=== PATIENT | male | born 1975 | race Caucasian/White ===

== ENCOUNTER 2016-11-09 06:40 | Emergency (ER) | payer BC ==
[~2016-11-09] VITALS: Ht 188 cm; Wt 106.6 kg
[2016-11-09 06:43] VITALS: BP_SYST 140
[2016-11-09] MEDS ORDERED: NACL 0.9% 1,000 ML IV ONE (07:19)
[2016-11-09] MEDS ORDERED: KETOROLAC TROMETHAMINE 30 MG VIAL IVP ONE (07:30)
[2016-11-09] MEDS ORDERED: ONDANSETRON HCL 4 MG/2 ML VIAL IVP ONE (07:30)
[2016-11-09 07:36] LABS: BASOPHILS # (AUTO) 0.1 K/uL (0.0-0.2); BASOPHILS % (AUTO) 1.1 % (0.0-2.0); EOSINOPHILS # (AUTO) 0.1 K/uL (0.0-0.4); EOSINOPHILS % (AUTO) 0.7 % (0.0-4.0); HEMATOCRIT 48.8 % (36-54); HEMOGLOBIN 16.1 g/dL (14.0-18.0); MEAN CORPUSCULAR HEMOGLOBIN 29 pg (27-31); MEAN CORPUSCULAR HGB CONC 33 % (32-36); MEAN CORPUSCULAR VOLUME 89 fL (79.0-98.0); MONOCYTES # (AUTO) 0.5 K/uL (0.0-1.0); MONOCYTES % (AUTO) 6.7 % (1.7-9.3); NEUTROPHILS # (AUTO) 5.9 K/uL (1.8-7.7); NEUTROPHILS % (AUTO) 78.5 % (40.0-70.0); PLATELET COUNT (AUTO) 210 K/uL (130-430); RED BLOOD CELL COUNT(AUTO) 5.47 MIL/uL (4.2-6.2); RED CELL DISTRIBUTION WIDTH 12.8 % (9.0-15.0); WHITE BLOOD COUNT (AUTO) 7.6 K/uL (4.8-10.8)
[2016-11-09 07:48] LABS: CALCIUM 9.3 mg/dL (8.4-11.0); CREATININE 1.17 mg/dL (0.55-1.30); POTASSIUM 4.1 mmol/L (3.5-5.1)
[2016-11-09 07:53] LABS: ALBUMIN 3.8 g/dL (3.4-4.8); TOTAL BILIRUBIN 0.5 mg/dL (0.0-1.0)
[2016-11-09 08:38] LABS: ERYTHROCYTE SEDIMENTATION RATE 1 MM/HR (0-15)
[2016-11-09 09:40] VITALS: BP_SYST 132
== END 2016-11-09 09:40 | disposition home or self-care (01) ==
LOC: SED 06:40
DX: J32.9 Chronic sinusitis, unspecified (principal)
CPT/HCPCS: 36415; 70450; 80053; 85025; 85651; 96361; 96374; 96375; 99285; J1885; J2405; J7030

== ENCOUNTER 2023-10-08 21:41 | Inpatient (IN) | payer BC ==
[~2023-10-08] VITALS: Ht 188 cm; Wt 117.9 kg
[2023-10-08] MEDS: ACETAMINOPHEN 500 MG TABLET PO ONE (22:53)
[2023-10-08] MEDS: NS 1000 ML IV.SOLN IV ONE (23:18)
[2023-10-08 23:21] LABS: HEMATOCRIT 38.6 % (36-54); HEMOGLOBIN 13.4 g/dL (14.0-18.0); MEAN CORPUSCULAR HEMOGLOBIN 33 pg (27-31); MEAN CORPUSCULAR HGB CONC 35 % (32-36); MEAN CORPUSCULAR VOLUME 96 fL (79.0-98.0); PLATELET COUNT (AUTO) 144 K/uL (130-430); RED BLOOD CELL COUNT(AUTO) 4.01 MIL/uL (4.2-6.2); RED CELL DISTRIBUTION WIDTH 16.3 % (9.0-15.0); WHITE BLOOD COUNT (AUTO) 3.4 K/uL (4.8-10.8)
[2023-10-08 23:46] LABS: ALANINE AMINOTRANSFERASE 29 U/L (12-78); ALBUMIN 3.3 g/dL (3.4-4.8); ANION GAP 8 (5-15); ASPARTATE AMINOTRANSFERASE 20 U/L (10-37); BILIRUBIN,DIRECT 0.2 mg/dL (0.0-0.3); CALCIUM 8.7 mg/dL (8.4-11.0); CARBON DIOXIDE 29 mmol/L (23-29); CHLORIDE 97 mmol/L (98-107); CREATININE 1.21 mg/dL (0.55-1.30); GFR AFRICAN AMERICAN 82 mL/min (>90); GLUCOSE 129 mg/dL (74-106); POTASSIUM 4.3 mmol/L (3.5-5.1); SODIUM SERUM 134 mmol/L (136-145); TOTAL BILIRUBIN 0.6 mg/dL (0.0-1.0); TOTAL PROTEIN, SERUM 7.4 g/dL (6.4-8.3); UREA NITROGEN, BLOOD 13 mg/dL (8-21)
[2023-10-08 23:47] LABS: INR 1.1 (0.80-1.20); PROTHROMBIN TIME 11.5 SECS (9.5-12.5)
[2023-10-08 23:50] LABS: GFR NON AFRICAN-AMERICAN 68 mL/min (>90)
[2023-10-09] MEDS ORDERED: DIF100 PO (00:30)
[2023-10-09] MEDS ORDERED: VALA500T PO (00:30)
[2023-10-09] MEDS ORDERED: CIPR250T4 PO (00:30)
[2023-10-09 00:34] LABS: BILIRUBIN,URINE NEGATIVE (NEGATIVE); BLOOD, URINE NEGATIVE (NEGATIVE); CLARITY/URINE CLEAR (CLEAR); COLOR,URINE YELLOW (YELLOW); GLUCOSE,URINE NEGATIVE (NEGATIVE); KETONES,URINE NEGATIVE (NEGATIVE); LEUKOCYTE ESTERASE ,URINE NEGATIVE (NEGATIVE); NITRITE, URINE NEGATIVE (NEGATIVE); PROTEIN URINE NEGATIVE (NEGATIVE); UROBILINOGEN,URINE 0.2 (0.2-1.0)
[2023-10-09 00:58] LABS: COVID19 ANTIGEN SOFIA FIA NEGATIVE (NEGATIVE)
[2023-10-09] MEDS ORDERED: VANCOMYCIN HCL 1000 MG/VIAL IV ONE (01:01)
[2023-10-09] MEDS ORDERED: CEFEPIME 2 GM/VIAL (MAXIPIME) ONE ×2 (01:01→01:03)
[2023-10-09 01:09] LABS: LYMPHOCYTES % (MANUAL) 30 % (20-46)
[2023-10-09 01:10] LABS: ATYPICAL LYMPHOCYTES % 44 % (0-0); EOSINOPHILS % (MANUAL) 1 % (0-7); MONOCYTES % (MANUAL) 2 % (0-11)
[2023-10-09 01:11] LABS: PLATELET ESTIMATE ADEQUATE (ADEQUATE)
[2023-10-09] MEDS: CEFEPIME 2 GM in D5W 100 ML IV ONE (01:15)
[2023-10-09 01:21] LABS: INFLUENZA TYPE A Negative (NEGATIVE); INFLUENZA TYPE B NEGATIVE (NEGATIVE)
[2023-10-09] MEDS: VANCOMYCIN HCL 1,000 MG in NS 250 ML IV ONE (02:30)
[2023-10-09 04:37] VITALS: BP_SYST 127; PULSE 78; RESP 16; TEMP 98.6; O2SAT 98
[2023-10-09] MEDS: ACETAMINOPHEN 325 MG TABLET PO PRN (05:26)
[2023-10-09] MEDS: DIPHENHYDRAMINE HCL 25 MG CAPSULE PO ONE (05:26)
[2023-10-09 08:58] VITALS: BP_SYST 140; PULSE 90; RESP 18; TEMP 98.6; O2SAT 99
[2023-10-09 09:25] VITALS: O2SAT 99
[2023-10-09] MEDS ORDERED: HYDROcodone/ACETAMIN 5-325 MG TAB (NORCO/ VICODIN) PO PRN (11:00)
[2023-10-09] MEDS ORDERED: HYDROcodone/ACETAMIN 10-325 MG TAB PO PRN (11:00)
[2023-10-09] MEDS ORDERED: LORazepam 2 MG/ML VIAL IVP PRN (11:00)
[2023-10-09] MEDS ORDERED: NALOXONE HCL 0.4 MG/ML AMP (NARCAN) IVP PRN ×2 (11:00)
[2023-10-09] MEDS ORDERED: ONDANSETRON HCL 4 MG/2 ML VIAL IVP PRN (11:00)
[2023-10-09] MEDS: predniSONE 20 MG TABLET PO ONE (11:25)
[2023-10-09 11:51] LABS: BASOPHILS % (AUTO) 0.3 % (0.0-2.0); EOSINOPHILS % (AUTO) 0.6 % (0.0-4.0); HEMATOCRIT 38.5 % (36-54); LYMPHOCYTES % (AUTO) 74.5 % (20.5-51.5); MEAN CORPUSCULAR HEMOGLOBIN 33 pg (27-31); MEAN CORPUSCULAR HGB CONC 34 % (32-36); MEAN CORPUSCULAR VOLUME 98 fL (79.0-98.0); MONOCYTES # (AUTO) 0.1 K/uL (0.0-1.0); MONOCYTES % (AUTO) 3.5 % (1.7-9.3); NEUTROPHILS % (AUTO) 21.1 % (40.0-70.0); PLATELET COUNT (AUTO) 135 K/uL (130-430); RED BLOOD CELL COUNT(AUTO) 3.93 MIL/uL (4.2-6.2); RED CELL DISTRIBUTION WIDTH 16.2 % (9.0-15.0)
[2023-10-09 12:05] LABS: NEUTROPHILS # (AUTO) 0.6 K/uL (1.8-7.7)
[2023-10-09 12:06] VITALS: BP_SYST 121; PULSE 90; RESP 17; TEMP 100.3; O2SAT 96
[2023-10-09 12:10] LABS: CALCIUM 8.5 mg/dL (8.4-11.0); CREATININE 1.17 mg/dL (0.55-1.30); TOTAL BILIRUBIN 0.6 mg/dL (0.0-1.0); TOTAL PROTEIN, SERUM 6.8 g/dL (6.4-8.3)
[2023-10-09] MEDS: DIPHENHYDRAMINE HCL 25 MG CAPSULE PO SCH (13:04)
[2023-10-09] MEDS: CEFEPIME 2 GM in D5W 100 ML IV SCH (13:05)
[2023-10-09] MEDS: NORMAL SALINE 5 ML DISP.SYRIN IVF SCH (13:06)
[2023-10-09 14:33] LABS: WHITE BLOOD COUNT (AUTO) 2.7 K/uL (4.8-10.8)
[2023-10-09] MEDS: cefTRIAXone 1 GM IVPB PREMIX 50 ML IV SCH (14:44)
[2023-10-09 16:32] VITALS: BP_SYST 124; PULSE 91; RESP 18; TEMP 100; O2SAT 95
[2023-10-09] MEDS ORDERED: FILGRASTIM Non-Formulary 0.48 MG/VIAL SUBCUT SCH (17:00)
[2023-10-09] MEDS: TBO-FILGRASTIM 480 MCG/0.8 ML SYRINGE SUBCUT ONE (19:41)
[2023-10-09 20:00] VITALS: BP_SYST 129; PULSE 88; RESP 18; TEMP 99.3; O2SAT 95
[2023-10-09] MEDS ORDERED: IBUPROFEN 400 MG TABLET PO PRN (20:45)
[2023-10-09] MEDS: D5/0.45 NS 1,000 ML IV SCH (21:08)
[2023-10-10] VITALS: BP_SYST 129; PULSE 87; RESP 18; TEMP 100.4; O2SAT 95
[2023-10-10] MEDS ORDERED: OXYMETAZOLINE HCL 0.05% NASAL SPRAY NS PRN (04:45)
[2023-10-10] MEDS: ACETAMINOPHEN 325 MG TABLET PO PRN (05:49)
[2023-10-10 07:50] LABS: CALCIUM 8.4 mg/dL (8.4-11.0); CREATININE 1.16 mg/dL (0.55-1.30); POTASSIUM 4.1 mmol/L (3.5-5.1)
[2023-10-10 08:00] VITALS: O2SAT 95
[2023-10-10 08:03] LABS: BASOPHILS % (AUTO) 0.3 % (0.0-2.0); EOSINOPHILS % (AUTO) 0.9 % (0.0-4.0); HEMATOCRIT 36.8 % (36-54); HEMOGLOBIN 12.4 g/dL (14.0-18.0); LYMPHOCYTES # (AUTO) 1.3 K/uL (1.0-5.5); LYMPHOCYTES % (AUTO) 62.9 % (20.5-51.5); MEAN CORPUSCULAR HEMOGLOBIN 33 pg (27-31); MEAN CORPUSCULAR HGB CONC 34 % (32-36); MEAN CORPUSCULAR VOLUME 98 fL (79.0-98.0); MONOCYTES % (AUTO) 0.6 % (1.7-9.3); PLATELET COUNT (AUTO) 140 K/uL (130-430); RED BLOOD CELL COUNT(AUTO) 3.76 MIL/uL (4.2-6.2); RED CELL DISTRIBUTION WIDTH 15.9 % (9.0-15.0); WHITE BLOOD COUNT (AUTO) 2.1 K/uL (4.8-10.8)
[2023-10-10] MEDS ORDERED: FLUCONAZOLE 100 MG TABLET (DIFLUCAN) PO SCH (09:00)
[2023-10-10] MEDS ORDERED: predniSONE 20 MG TABLET PO SCH (09:00)
[2023-10-10] MEDS ORDERED: valACYclovir HCL 500 MG TABLET PO SCH (09:00)
[2023-10-10 09:06] LABS: NEUTROPHILS # (AUTO) 0.7 K/uL (1.8-7.7)
[2023-10-10 09:08] LABS: NEUTROPHILS % (AUTO) 35.3 % (40.0-70.0)
[2023-10-10 09:29] VITALS: BP_SYST 132; PULSE 87; RESP 12; TEMP 100.1; O2SAT 95
[2023-10-10] MEDS ORDERED: methylPREDNISolone SOD SUCC/PF 62.5 MG/ML VIAL IVP ONE (09:55)
[2023-10-10] MEDS ORDERED: TBO-FILGRASTIM 480 MCG/0.8 ML SYRINGE SUBCUT SCH (17:00)
== END 2023-10-10 10:00 | disposition home or self-care (01) | DRG 809 ==
LOC: SED 21:41 → SMU 10-09 03:42
PROVIDERS: ADMIT Preventive Medicine Preventive Medicine/Occupational Environmental Medicine; ATTEND Preventive Medicine Preventive Medicine/Occupational Environmental Medicine
DX: D70.9 Neutropenia, unspecified (principal); C91.40 Hairy cell leukemia not having achieved remission; E87.1 Hypo-osmolality and hyponatremia; R50.81 Fever presenting with conditions classified elsewhere; D64.9 Anemia, unspecified; E88.09 Other disorders of plasma-protein metabolism, not elsewhere classified; Z20.822 Contact with and (suspected) exposure to COVID-19; R73.9 Hyperglycemia, unspecified; J32.0 Chronic maxillary sinusitis; T45.1X5A Adverse effect of antineoplastic and immunosuppressive drugs, initial encounter; Z79.899 Other long term (current) drug therapy; Y92.89 Other specified places as the place of occurrence of the external cause; R21 Rash and other nonspecific skin eruption
CPT/HCPCS: 36415; 71045; 71250-TC; 80048; 80053; 80076; 81001; 81003; 83605; 84484; 85007; 85025; 85027; 85610; 85730; 87040; 87081; 87086; 93306; 99291; J0692; J0696; J1447; J3370; J7060; J7512; Q0163